=== PATIENT | male | born 1995 | race African-American/Black ===

== ENCOUNTER 2025-04-14 18:40 | Emergency (ER) | payer BC, SELFPAY ==
[2025-04-14 18:41] VITALS: BP 155/99; PULSE 84; RESP 18; TEMP 37; O2SAT 100; BMI 41.1
--- NOTE | 2025-04-14 18:59 | EKG12_ITS ---
Test Reason : CP Blood Pressure : */* mmHG Vent. Rate : 83 BPM Atrial Rate : 83 BPM P-R Int : 156 ms QRS Dur : 82 ms QT Int : 360 ms P-R-T Axes : 53 25 -5 degrees QTcB Int : 423 ms Normal sinus rhythm Normal ECG Confirmed by Arthur Limon ([id number]), makeup editor RICARDO GIFFORD ([id number]) on 04/15/2025 11:27:07 AM Referred By: ELSA Confirmed By: Arthur Limon
--- NOTE | 2025-04-14 18:59 | EKG12_ITS ---
Test Reason : CP Blood Pressure : */* mmHG Vent. Rate : 83 BPM Atrial Rate : 83 BPM P-R Int : 156 ms QRS Dur : 82 ms QT Int : 360 ms P-R-T Axes : 53 25 -5 degrees QTcB Int : 423 ms Normal sinus rhythm Normal ECG Confirmed by Arthur Limon ([id number]), research editor RICARDO GIFFORD ([id number]) on 04/15/2025 11:27:07 AM Referred By: ELSA Confirmed By: Arthur Limon
--- NOTE | 2025-04-14 19:00 | EDS_ITS ---
HPI History of Present Illness Chief Complaint: Chest Pain Informant: patient Onset/Context/Timing Onset: Weeks Activity at onset: gradual Timing: Intermittent Quality: Positive for Sharp Location: Right Chest and Left Chest Current Severity: Mild Maximum Severity: Mild Worsened By: Nothing Relieved By: Nothing Associated Symptoms: Negative for Nausea, Vomiting, Diaphoresis, Dyspnea, Cough, Fever, Lightheadedness, Acid Reflux or Palpitations Narrative Narrative: 29-year-old male history of hypertension currently is no primary care physician he previously was treated with lisinopril has been off of that for months if not a year because he has not have anybody can rewrite the prescription for him. States is not uncommon for him to get chest pain but now he is getting back pain associated with it. Denies any fall injury or trauma. No history of DVT or PE. No family history. No recent travel, surgery immobilization. No hemoptysis. No leg pain or swelling. No cardiac history. No recent illness. Prior Similar Symptoms: Yes Recent Illness/Hospitalization: No CVD Risk Factors: Positive for Hypertension; Negative for Diabetes or Hypercholesterolemia PE Risk Factors: Negative for Recent Travel/Surgery, Recent Immobilization, Prior DVT or PE, Cancer or OCP + Smoking + >/=35 TAD Risk Factors: Negative for Marfan's Syndrome [facility] Medical History Vertigo Hypertension Home Medications ?Medication ?Instructions ?Recorded ?Last Taken ?Type lisinopril 10 mg tablet 10 mg PO DAILY 30 days #30 t abs 04/14/25 Unknown Rx Allergy/AdvReac Type Severity Reaction Status Date / Time No Known Allergies Allergy Verified 04/14/25 18:41 Social History Smoking Status: Never smoker ROS ROS ED Constitutional Constitutional ED: Denies chills or fever(s) Eyes Eyes: Reports none ENT ENT ED: Denies ear pain Cardiovascular Cardiovascular: Reports as per HPI and chest pain; Denies orthopnea, palpitations, paroxysmal nocturnal dyspnea or racing heartbeat Respiratory/Chest Respiratory/Chest: Denies cough, dyspnea, dyspnea on exertion, orthopnea, paroxysmal nocturnal dyspnea or sputum Gastrointestinal Gastrointestinal: Denies abdominal pain or constipation Genitourinary Genitourinary ED: Denies dysuria or hematuria Musculoskeletal Musculoskeletal: Reports back pain; Denies arthralgias Integumentary Denies abscess Neurologic Neurologic: Denies headache(s) Psychiatric Psychiatric: Denies anxiety Endocrine Endocrinology: Denies cold intolerance Hematologic/Lymphatic Hematologic/Lymphatic: Denies easy bleeding, easy bruising or lymphadenopathy Allergic/Immunologic Allergic/Immunologic ED: Denies mouth swelling, tongue swelling or urticaria EXAM Physical Exam Narrative Exam Narrative: Appropriate 9-year-old male. Vital signs are stable he is afebrile. Pulse ox 100% on room air no signs hypoxia. No distress. H EENT exam pupils round react light. Moist mucous membranes. Neck nontender no JVD. No lymphadenopathy. Lungs clear to auscultation bilaterally. Heart regular rhythm no murmur. Chest wall and ribs are nontender. Abdomen is soft nontender normal bowel sounds without peritoneal signs. Back nontender. Moving all 4 extremities. Normal education manager strength. Normal dorsi plantarflexion. Calves are nontender without edema or cords. Equal symmetric radial pulses. Neurologically is awake alert. Answer questions following commands. Benign exam. Const Vital Signs: 04/14/25 18:41 04/14/25 18:48 04/14/25 19:02 Temperature 98.6 F Temperature Source Oral Pulse Rate 84 Respiratory Rate 18 Respiratory Effort Normal Non-Labored Blood Pressure 155/99 H Blood Pressure Mean 117 Pulse Ox 100 Oxygen Delivery Method Room Air Room Air 04/14/25 19:30 04/14/25 20:00 Temperature Temperature Source Pulse Rate 86 81 Respiratory Rate 18 18 Respiratory Effort Blood Pressure 152/83 H 146/94 H Blood Pressure Mean 106 111 Pulse Ox 100 99 Oxygen Delivery Method Room Air Room Air Positive well nourished and well developed; Negative for cachectic, contractures or unkempt General Appearance ED: well developed and NAD; Negative for unkempt, cachectic or contractures Nutritional Appearance: Negative for cachectic HEENT Reports moist mucous membranes normocephalic and atraumatic Eyes PERRL and EOMs intact bilaterally General Eye ED: Negative for pale conjunctiva or scleral icterus Neck no lymphadenopathy, supple and no JVD Chest Wall inspection of chest normal and palpation of chest normal Resp normal respiratory effort and clear to auscultation bilaterally Cardio regular rate, regular rhythm, S1 normal heart sound, S2 normal heart sound and no murmurs Peripheral Pulses: pulses 2+ throughout GI normal to inspection, nondistended, normoactive bowel sounds, soft to palpation, non-tender, non-distended and no masses Back/Spine no CVA tenderness and no thoracic nor lumbar tenderness Extremity normal to inspection General Extremety ED: Negative for edema, pulses abnormal or tenderness General Extremity: Negative for edema or pulses abnormal Neuro oriented x3 and CN's II-XII intact bilaterally Sensorium / Orientation: awake, alert, oriented to person, oriented to place and oriented to time; Negative for confused or lethargic Motor Exam: strength 5/5 throughout Psych mental status grossly normal Appearance: Negative for unkempt Skin no rashes or lesions noted and no wounds Heart Score History: Slightly/Non-Suspicious ECG: Normal Age: </= 45 years Risk Factors: 1 or 2 Risk Factors Troponin: </= Normal Limit Score: 1 MDM MDM MDM Narrative Medical decision making narrative: 29-year-old male atypical nonreproducible chest pain. No family history or personal history of DVT or PE or risk factors. Undergo cardiac workup. Exam is benign. Repeat exam at 8:12 pm patient doing well. I went over his normal test results. He is comfortable being discharged home. Chest pain uncertain etiology. Motrin and Tylenol for pain. Outpatient follow-up. I will write him a new prescription for his lisinopril since he has been out of it. And give him a primary care physician to follow-up with. History & Record Review Discussion w/independent historian: Patient Additional record(s) reviewed:: No prior records Lab Data Attestation: I reviewed the patient's lab results. Lab results narrative: CBC white count of 5. H&H 15 and 45. Platelets 110. Electrolytes show sodium 139. Gap 11. Normal BUN and creatinine. Glucose 107. Initial troponin less than 6. Given the patient is 29 and has had pain for weeks I do not think he needs a second. His D-dimer is normal at 0.27. Chest x-ray is normal. Labs: Laboratory Results - last 24 hr 04/14/25 18:47 WBC 5.2 RBC 5.19 Hgb 15.4 Hct 45.2 MCV 87.1 MCH 29.7 MCHC 34.1 RDW Std Deviation 38.8 RDW Coeff of Tariq 12.1 Plt Count 110 L MPV 11.7 Immature Gran % (Auto) 0.400 Neut % (Auto) 49.4 Lymph % (Auto) 38.3 [place] % (Auto) 9.4 Eos % (Auto) 1.9 Baso % (Auto) 0.6 Absolute Neuts (auto) 2.6 Absolute Lymphs (auto) 1.99 Nucleated RBC % 0 D-Dimer Quant (PE/DVT) 0.27 Sodium 139 Potassium 4.1 Chloride 102 Carbon Dioxide 25.3 Anion Gap 11 BUN 10 Creatinine 1.17 Estim Creat Clear Calc 122.46 Est GFR (MDRD) Non-Af 87 BUN/Creatinine Ratio 8.7 L Glucose 107 H Calcium 9.3 Troponin T High Sens < 6 Radiography Chest X-Ray - ED: 2 View, Read by ED Physician, Read by Radiologist, Normal, Heart, Lungs, Mediastinum, Bony Structures, No Acute Disease and Chronic Changes Diagnostic Testing: Clinical Impression(s) from Imaging Studies Chest X-Ray 04/14/25 19:05 IMPRESSION: No focal consolidation. Reading Location: [facility] Chest x-ray, 2 views, AP and lateral, interpreted by myself and radiologist shows normal cardiac silhouette. Normal mediastinum. Normal lung chiang. No effusions. No pneumonia. Rhythm Strip Rhythm Strip: Sinus Rhythm Rate: 83 Ectopy: None EKG Initial EKG: Attestation: I personally reviewed and interpreted this EKG as follows: Interpretation: Sinus Rhythm and No Acute Injury Pattern Comments: Normal sinus rhythm rate 83 no acute signs of VT or ischemia. Prior EKG tracings: not available for review Prior: No Prior Discharge Plan Triage Chief Complaint: Chest Pain ED Provider: Bruno Lewis Dx/Rx/DC Orders Clinical Impression: Chest pain, History of hypertension Instructions: ED Chest Pain, Uncertain Cause Prescriptions: New lisinopril 10 mg tablet 10 mg PO DAILY 30 Days Qty: 30 1RF Primary Care Provider: Care Physician,No Primary Referrals: Care Physician,No Primary [Primary Care Provider] - Marcel Valderrama, SUPERVISOR [employer]CTS-[employer] [facility] - As soon as possible Activity Restrictions/Additional Instructions: Take your blood pressure medication lisinopril as prescribed. Follow-up with a local primary care physician either one of your choice or the clinic. Return if feeling worse. All your test tonight including your EKG and chest x- ray and all of your lab work were normal. Print Language: Swedish Disposition Disposition: Home, Self Care
--- NOTE | 2025-04-14 19:05 | RAD_ITS ---
PROCEDURE: CHEST PA AND LATERAL 04/14/2025 REASON FOR EXAM: CHEST PAIN TECHNIQUE: CHEST PA AND LATERAL COMPARISON: None FINDINGS: No focal consolidation. No pleural effusion or pneumothorax. Cardiac silhouette is within normal limits. No acute fractures. RAD/Chest PA and Lateral IMPRESSION: No focal consolidation. Reading Location: [id number]
--- NOTE | 2025-04-14 19:05 | RAD_ITS ---
PROCEDURE: CHEST PA AND LATERAL 04/14/2025 REASON FOR EXAM: CHEST PAIN TECHNIQUE: CHEST PA AND LATERAL COMPARISON: None FINDINGS: No focal consolidation. No pleural effusion or pneumothorax. Cardiac silhouette is within normal limits. No acute fractures. RAD/Chest PA and Lateral IMPRESSION: No focal consolidation. Reading Location: [id number]
[2025-04-14 19:12] LABS: Hematocrit 45.2 % (40-54); Hemoglobin 15.4 g/dL (13.0-16.5); Immature Granulocytes Count 0.020 X10^3/uL (0.0-0.0); Mean Corp Hgb Conc 34.1 g/dL (32-36); Mean Corpuscular Volume 87.1 fL (80-94); Mean Platelet Vol. 11.7 fl (6.2-12.0); NRBC Flagged by Analyzer 0 % (0-5); Platelet Count 110 K/mm3 (150-450); RBC Distribution Width CV 12.1 % (11.6-14.6); RBC Distribution Width SD 38.8 fl (35.1-43.9); Red Blood Count 5.19 M/mm3 (4.6-6.2); White Blood Count 5.2 K/mm3 (4.4-11.0)
[2025-04-14 19:20] LABS: D-Dimer Quantitative (DVT/PE) 0.27 FEU/ug/m (0.27-0.49)
[2025-04-14 19:30] VITALS: BP 152/83; PULSE 86; RESP 18; O2SAT 100
[2025-04-14 19:44] LABS: Troponin T High Sensitivity < 6 ng/L (<=22)
[2025-04-14 19:48] LABS: Anion Gap 11 (5-15); BUN 10 mg/dL (4-19); BUN/Creat Ratio 8.7 RATIO (10-20); Calcium,Total 9.3 mg/dL (7.6-11.0); Carbon Dioxide 25.3 mmol/L (21.0-32.0); Chloride 102 mmol/L (98-108); Estimated Creatinine Clearance 122.46 ml/min (50-250); Glucose 107 mg/dL (70-99); Potassium 4.1 mmol/L (3.3-5.1)
[2025-04-14 20:00] VITALS: BP 146/94; PULSE 81; RESP 18; O2SAT 99
--- NOTE | 2025-04-14 20:10 | CM.ED ---
Social work Reason for referral: no PCP Referral source: case find SW identified patient's lack of PCP and need for resources. SW entered patient's room, introducing self and role at [facility]. Patient welcomed SW visit and confirmed lack of PCP. Patient accepted resources of [facility] Provider Directory and Imani Devries information. Patient asked for counseling and psychiatry resources as well to help manage patient's anxiety as patient reported feeling more anxious lately. Most recent resources for local counseling and psychiatry provided. No further needs identified. Avani Sanchez, PLASTIC JIG AND FIXTURE BUILDER, BRINEYARD SUPERVISOR
--- NOTE | 2025-04-14 20:10 | CM.ED ---
Social work Reason for referral: no PCP Referral source: case find SW identified patient's lack of PCP and need for resources. SW entered patient's room, introducing self and role at [facility]. Patient welcomed SW visit and confirmed lack of PCP. Patient accepted resources of [facility] Provider Directory and Imani Devries information. Patient asked for counseling and psychiatry resources as well to help manage patient's anxiety as patient reported feeling more anxious lately. Most recent resources for local counseling and psychiatry provided. No further needs identified. Avani Sanchez, HUMAN RESOURCES PROJECT COORDINATOR, SEO ANALYST
[2025-04-14 20:18] VITALS: BP 164/88; PULSE 83; RESP 18; TEMP 37; O2SAT 100
== END 2025-04-14 20:25 | disposition home or self-care (01) ==
PROVIDERS: Emergency Provider Emergency Medicine; Visit Provider Emergency Medicine
DX: R07.89 Other chest pain (principal); I10 Essential (primary) hypertension; Z79.899 Other long term (current) drug therapy
CPT/HCPCS: 71046; 80048; 84484; 85025; 85379; 93005; 99285; A4216

== ENCOUNTER 2025-04-30 15:25 | Emergency (ER) | payer BC, SELFPAY ==
[2025-04-30 15:27] VITALS: BP 170/110; PULSE 82; RESP 18; TEMP 36.9; O2SAT 98
--- NOTE | 2025-04-30 15:57 | EX.ED.DYSGE1 ---
HPI History of Present Illness Chief Complaint: Dizziness Informant: patient and EMS Narrative Narrative: Brought in by EMS from home with recurrent vertigo symptoms. Awakened at 1 PM felt dizzy sitting he states symptoms worse with looking up or looking down with room spinning transient nausea. History of similar 2 years ago diagnosed in [place] worked up in the ER. He had medicines at the time that did help. Denies recent illness he states he deals with cerumen impaction he did remove cerumen yesterday however denied any trauma with this. No ear ringing. No cough. No allergies. States slight headache. Prior similar symptoms: Yes [facility] Medical History Vertigo Hypertension Home Medications ?Medication ?Instructions ?Recorded ?Last Taken ?Type lisinopril 10 mg tablet 10 mg PO DAILY 30 days #30 tabs 04/14/25 Unknown Rx meclizine 25 mg tablet 25 mg PO 4X/DAY PRN PRN Dizziness 04/30/25 Unknown Rx #20 tabs Allergy/AdvReac Type Severity Reaction Status Date / Time No Known Allergies Allergy Verified 04/30/25 15:30 Social History Smoking Status: Never smoker ROS ROS ED Constitutional Constitutional ED: Denies fever(s) Cardiovascular Cardiovascular: Denies chest pain Respiratory/Chest Respiratory/Chest: Denies cough Gastrointestinal Gastrointestinal: Denies diarrhea or vomiting Musculoskeletal Musculoskeletal: Denies none Integumentary Denies rash or wounds Neurologic Neurologic: Reports headache(s) and other Details: Dizziness ; Denies weakness EXAM Physical Exam Const Vital Signs: 04/30/25 15:27 04/30/25 17:27 Temperature 98.4 F Temperature Source Oral Pulse Rate 82 76 Respiratory Rate 18 16 Blood Pressure 170/110 H 151/110 H Blood Pressure Mean 130 123 Pulse Ox 98 100 Oxygen Delivery Method Room Air Room Air Positive well nourished and well developed General Appearance ED: well developed and NAD HEENT Reports TM's clear and moist mucous membranes normocephalic and atraumatic Tympanic Membrane ED: Yes TM's clear Eyes Eyes Narrative: No nystagmus. General Eye ED: Yes normal appearance of both eyes Neck full ROM Chest Wall Chest: Negative for tenderness Resp normal respiratory effort and normal air movement Effort and Inspection: symmetric chest movement; Negative for respiratory distress Cardio regular rate, regular rhythm and no murmurs Peripheral Pulses: pulses 2+ throughout GI normal to inspection, nondistended, normoactive bowel sounds and non-tender Palpation: Negative for guarding or rebound tenderness present Extremity normal to inspection General Extremety ED: Negative for edema or tenderness General Extremity: Negative for edema Neuro oriented x3, CN's II-XII intact bilaterally and no sensory deficits noted Neuro Narrative: [place]-Hallpike was negative bilaterally. Sensorium / Orientation: awake and alert Skin no rashes or lesions noted and no wounds MDM MDM MDM Narrative Medical decision making narrative: Interventions / MDM: Differential diagnosis: Vertigo Diagnosis considered but do not suspect: Intracranial hemorrhage, vascular insufficiency however CT negative. My EKG interpretation: N/A Imaging independently reviewed and interpreted by myself: CT angiogram head and neck per radiology no acute process. External documents reviewed: N/A Test considered but not ordered:N/A ED course: Presents with vertigo symptoms worse with looking up and down. Reports headache. Negative [place]-Hallpike no nystagmus. IV was established. He will be given IV Reglan. Patient recurrent symptoms states has not had a CT angiogram previously from his first episode. Will check CT angiogram head and neck. 1755: CT results negative clinically was feeling better. Ambulated with no difficulties. Similar symptoms in the past. Will write prescription for meclizine use as needed. Outpatient follow-up given. All questions were answered. Re-evaluation: stable Disposition discussed with patient/family/significant other: Patient Case discussed with consulting clinician: N/A This note was generated with [employer] dictation software. It may contain incorrect words, spelling, and punctuation that were not noted in checking the note before signing. Lab Data Attestation: I reviewed the patient's lab results. Labs: Laboratory Results - last 24 hr 04/30/25 15:52 WBC 4.3 L RBC 5.40 Hgb 16.1 Hct 46.8 MCV 86.7 MCH 29.8 MCHC 34.4 RDW Std Deviation 37.7 RDW Coeff of Tariq 11.9 Plt Count 135 L MPV 10.9 Immature Gran % (Auto) 0.200 Neut % (Auto) 65.4 Lymph % (Auto) 25.4 [place] % (Auto) 7.8 Eos % (Auto) 0.7 Baso % (Auto) 0.5 Absolute Neuts (auto) 2.8 Absolute Lymphs (auto) 1.08 Nucleated RBC % 0 PT 13.5 INR 1.0 APTT 24.6 Sodium 136 Potassium 4.2 Chloride 99 Carbon Dioxide 26.3 Anion Gap 10 BUN 9 Creatinine 0.98 Est GFR (MDRD) Non-Af 107 BUN/Creatinine Ratio 9.3 L Glucose 112 H Calcium 8.9 Radiography Diagnostic Testing: Clinical Impression(s) from Imaging Studies Head/Neck CTA 04/30/25 16:38 IMPRESSION: Normal CTA of the head and neck. No acute intracranial abnormality. Reading Location: [id number] Discharge Plan Triage Chief Complaint: Dizziness ED Provider: Jose Francisco Díaz Dx/Rx/DC Orders Clinical Impression: Vertigo, Dizziness Instructions: ED Vertigo, Unspecified Prescriptions: New meclizine 25 mg tablet 25 mg PO 4X/DAY PRN PRN (Reason: Dizziness) Qty: 20 0RF No Action lisinopril 10 mg tablet 10 mg PO DAILY 30 Days Qty: 30 1RF Stand Alone Forms: ED Work / School Excuse Primary Care Provider: Care Physician,No Primary Referrals: Philipp Ambrocio MD [Med Staff - Active Staff] - 1-2 Weeks Care Physician,No Primary [Primary Care Provider] - Activity Restrictions/Additional Instructions: CT angiogram head and neck normal. Labs normal. Clinical improvement with medications. Taking use medication as prescribed as needed. Follow-up to be established with primary care doctor. Print Language: [place] Disposition Disposition: Home, Self Care
[2025-04-30] MEDS: 0.9% Normal Saline (500mL Bag) 500 ML 1000 ML IV (16:03)
--- NOTE | 2025-04-30 16:38 | CT_ITS ---
PROCEDURE: CTA HEAD AND NECK W/ CONTRAST 04/30/2025 REASON FOR EXAM: VERTIGO TECHNIQUE: CTA HEAD AND NECK W/ CONTRAST Multiplanar Sagittal and Coronal images were obtained. 3D and MIP post processing was performed. CONTRAST: Isovue 370 VOLUME: 100 mL One or more dose reduction techniques were used (e.g., Automated exposure control, adjustment of the mA and/or kV according to patient size, use of iterative reconstruction technique). RADIATION DOSE SUMMARY: DLP: 1582.81 mGycm COMPARISON: None available. FINDINGS: CTA HEAD: Patent intracranial arterial vasculature. No large vessel occlusion, significant stenosis, saccular aneurysm, or vascular malformation identified. No stenosis of the basilar artery. Left ZION A1 segment is relatively hypoplastic compared to the right side. Patent anterior and bilateral posterior communicating arteries. The major dural venous sinuses appear patent. CTA NECK: Conventional aortic arch branching. Bilateral cervical carotid and codominant vertebral arteries are patent, normal in course and caliber. No aneurysm or dissection. NONCONTRAST CT HEAD: No acute intracranial hemorrhage, extra-axial collection, mass effect or evidence of acute infarct. Ventricles and subarachnoid spaces are normal in size. Small roughly 7 mm focal dural calcification versus heavily calcified meningioma at the anterior left falx. Orbital contents are unremarkable. Intact skull base and calvarium. Polypoid mucosal thickening in the bilateral maxillary sinuses, greater on the right. Well-aerated bilateral mastoid air cells and middle ear cavities. CT/CTA Head AND Neck W/ Contrast IMPRESSION: Normal CTA of the head and neck. No acute intracranial abnormality. Reading Location: [id number]
[2025-04-30 16:41] LABS: Anion Gap 10 (5-15); BUN 9 mg/dL (4-19); BUN/Creat Ratio 9.3 RATIO (10-20); Calcium,Total 8.9 mg/dL (7.6-11.0); Carbon Dioxide 26.3 mmol/L (21.0-32.0); Chloride 99 mmol/L (98-108); Glucose 112 mg/dL (70-99); Potassium 4.2 mmol/L (3.3-5.1)
[2025-04-30 17:09] LABS: Partial Thromboplast Time 24.6 Seconds (24.1-36.2); Prothrombin Time (Protime)PT. 13.5 SECONDS (11.7-14.9)
[2025-04-30 17:27] VITALS: BP 151/110; PULSE 76; RESP 16; O2SAT 100
[2025-04-30 17:44] LABS: Hematocrit 46.8 % (40-54); Hemoglobin 16.1 g/dL (13.0-16.5); Immature Granulocytes Count 0.010 X10^3/uL (0.0-0.0); Mean Corp Hgb Conc 34.4 g/dL (32-36); Mean Corpuscular Volume 86.7 fL (80-94); Mean Platelet Vol. 10.9 fl (6.2-12.0); NRBC Flagged by Analyzer 0 % (0-5); Platelet Count 135 K/mm3 (150-450); RBC Distribution Width CV 11.9 % (11.6-14.6); RBC Distribution Width SD 37.7 fl (35.1-43.9); Red Blood Count 5.40 M/mm3 (4.6-6.2); White Blood Count 4.3 K/mm3 (4.4-11.0)
[2025-04-30 18:04] VITALS: BP 147/107; PULSE 92; RESP 17; TEMP 36.6; O2SAT 98
== END 2025-04-30 18:04 | disposition home or self-care (01) ==
PROVIDERS: Emergency Provider Emergency Medicine; Visit Provider Emergency Medicine
DX: R42 Dizziness and giddiness (principal); I10 Essential (primary) hypertension; Z79.899 Other long term (current) drug therapy
CPT/HCPCS: 70496; 70498; 80048; 85025; 85610; 85730; 96374; 99285; Q9967; A4216

== ENCOUNTER 2025-09-17 15:41 | Emergency (ER) | payer BC, SELFPAY ==
[2025-09-17 15:53] VITALS: BP 177/103; PULSE 93; PULSE 95; RESP 16; TEMP 36.6; O2SAT 100; O2SAT 99; BMI 41.6
--- NOTE | 2025-09-17 16:08 | CT_ITS ---
PROCEDURE: CT SOFT TISSUE NECK WITH CONTRAST 09/17/2025 REASON FOR EXAM: R PERITONSILLAR ABSCESS TECHNIQUE: Procedure Code: CTNEW Modality: CT Procedure: SOFT TISSUE NECK WITH CONTRAST CONTRAST: Isovue-300 VOLUME: 75 mL One or more dose reduction techniques were used (e.g., Automated exposure control, adjustment of the mA and/or kV according to patient size, use of iterative reconstruction technique). RADIATION DOSE SUMMARY: CTDlvol: 20.39 mGy DLP: 651.94 mGycm COMPARISON: CTA neck 04/30/2025 FINDINGS: Mild prominence of the palatine tonsils and adenoids which may reflect tonsillitis. Otherwise no acute or active inflammatory pathology in the soft tissues of the neck appreciated. No drainable fluid collection/abscess. No prevertebral/retropharyngeal edema. Normal epiglottis. The visualized airway is widely patent and midline. Imaged major vascular structures are normal in course and caliber. No suspicious lymph node enlargement. Bilateral nonspecific shotty subcentimeter cervical lymph nodes may be reactive. Clear imaged lung apices. Visualized osseous structures are intact and within normal limits. No osseous erosion or destruction. No mastoid effusions or fluid in the paranasal sinuses. Mild polypoid mucosal thickening in the floors of the bilateral maxillary sinuses. CT/Soft Tissue Neck WITH Contrast IMPRESSION: Mildly prominent palatine tonsils and adenoids may reflect tonsillitis. No drainable fluid collection/abscess or other active inflammatory changes. Reading Location: [id number]
--- NOTE | 2025-09-17 16:09 | EX.ED.DYSGE1 ---
HPI History of Present Illness Chief Complaint: Cough Informant: patient Narrative Narrative: 29-year-old male presenting to the emergency room with sore throat cough. Patient states on Sunday he developed a cough and by Sunday he felt substantially worse noting myalgias nasal congestion worsening cough and sore throat. He states that he was coughing up what appeared to be some blood. He states that he believes he had a fever has been chilling. No vomiting or diarrhea. No rashes. He has a history of hypertension and takes lisinopril. He notes the right side of his throat hurts substantially more than the left. Patient did not take his blood pressure medication this morning. Pharmacy states a 30-day supply has not been filled for several months. [facility] Medical History Vertigo Hypertension Home Medications ?Medication ?Instructions ?Recorded ?Last Taken ?Type lisinopril 10 mg tablet 10 mg PO DAILY 30 days #30 tabs 04/14/25 09/16/25 Rx amoxicillin 875 mg-potassium 1 tab PO BID #20 tabs 09/17/25 Unknown Rx clavulanate 125 mg tablet Allergy/AdvReac Type Severity Reaction Status Date / Time No Known Allergies Allergy Verified 09/17/25 15:53 Surgical History no surgical history no surgical history Social History housing: house Smoking Status: Never smoker [facility] ED Constitutional Constitutional ED: Reports chills, fever(s) and subjective; Denies weight loss Eyes Eyes: Denies change in vision or diplopia ENT ENT ED: Reports rhinorrhea and sore throat; Denies ear pain Cardiovascular Cardiovascular: Denies chest pain, orthopnea, palpitations or racing heartbeat Respiratory/Chest Respiratory/Chest: Reports cough and other Details: Hemoptysis ; Denies dyspnea or orthopnea Gastrointestinal Gastrointestinal: Denies abdominal pain, diarrhea, nausea or vomiting Genitourinary Genitourinary ED: Denies dysuria, hematuria or urinary frequency Musculoskeletal Musculoskeletal: Reports myalgias; Denies arthralgias or neck pain Integumentary Denies abscess or rash Neurologic Neurologic: Denies headache(s) or weakness Psychiatric Psychiatric: Denies anxiety, depression, suicidal ideation or suicidal thoughts Endocrine Endocrinology: Denies polydipsia, polyphagia or polyuria Allergic/Immunologic Allergic/Immunologic ED: Denies mouth swelling, tongue swelling or urticaria EXAM Physical Exam Const Vital Signs: 09/17/25 15:53 09/17/25 15:53 09/17/25 16:31 Temperature 98 F Temperature Source Oral Pulse Rate 95 93 Respiratory Rate 16 16 Respiratory Effort Normal Non-Labored Respiratory Depth Normal Respiratory Pattern Normal Blood Pressure 177/103 H 177/103 H Blood Pressure Mean 127 127 Pulse Ox 99 100 Oxygen Delivery Method Room Air Room Air Positive well nourished and well developed General Appearance ED: well developed and NAD HEENT Reports normocephalic, head/scalp atraumatic and moist mucous membranes HEENT Narrative: Patient handling secretions normally. There is a hoarse voice but it is not muffled. There is right peritonsillar swelling when compared to the left. Mild oral pharyngeal erythema. No palatal petechiae. There is some scattered anterior lymph nodes. Tympanic membranes appear normal bilaterally. Eyes PERRL and EOMs intact bilaterally Neck supple and no JVD Neck Narrative: No meningeal signs Resp normal respiratory effort and clear to auscultation bilaterally Cardio regular rate, regular rhythm and no murmurs GI normal to inspection, nondistended, normoactive bowel sounds and non-tender Palpation: soft Back/Spine no CVA tenderness and normal ROM Extremity normal to inspection General Extremety ED: Negative for edema General Extremity: Negative for edema Neuro oriented x3 and CN's II-XII intact bilaterally Sensorium / Orientation: alert Motor Exam: strength 5/5 throughout Psych mental status grossly normal Mood & Affect: Negative for depressed or tearful Skin no rashes or lesions noted and no wounds MDM MDM MDM Narrative Medical decision making narrative: Differential diagnosis includes but not limited to pneumonia bacterial pharyngitis peritonsillar abscess viral URI bronchitis bronchospasm Patient's white count is 7.5. He has thrombocytopenia at 129 but this appears chronic in nature. [place] was negative liver enzymes normal. CT of the neck does not demonstrate a peritonsillar abscess. My independent interpretation of the chest x-ray is no acute process. Throat culture was obtained. Patient will be started on Augmentin. Would recommend oral hydration. Work note will be given. Return if worsening or concerns. Patient was encouraged to take his lisinopril. History & Record Review Discussion w/independent historian: Patient Lab Data Attestation: I reviewed the patient's lab results. Labs: Laboratory Results - last 24 hr 09/17/25 16:30 WBC 7.5 RBC 5.21 Hgb 15.2 Hct 46.2 MCV 88.7 MCH 29.2 MCHC 32.9 RDW Std Deviation 38.7 RDW Coeff of Tariq 11.9 Plt Count 129 L MPV 10.6 Immature Gran % (Auto) 0.300 Neut % (Auto) 64.3 Lymph % (Auto) 23.8 [place] % (Auto) 9.9 Eos % (Auto) 1.2 Baso % (Auto) 0.5 Absolute Neuts (auto) 4.8 Absolute Lymphs (auto) 1.78 Nucleated RBC % 0 Sodium 137 Potassium 4.8 Chloride 102 Carbon Dioxide 25.8 Anion Gap 9 BUN 14 Creatinine 0.98 Estim Creat Clear Calc 147.21 Est GFR (MDRD) Non-Af 108 BUN/Creatinine Ratio 13.8 Glucose 109 H Calcium 9.2 Total Bilirubin 0.27 AST 34 ALT 45 Alkaline Phosphatase 88 Total Protein 7.1 Albumin 3.8 Globulin 3.3 Albumin/Globulin Ratio 1.2 Monoscreen Negative Radiography Diagnostic Testing: Clinical Impression(s) from Imaging Studies Soft Tissue Neck CT 09/17/25 16:08 IMPRESSION: Mildly prominent palatine tonsils and adenoids may reflect tonsillitis. No drainable fluid collection/abscess or other active inflammatory changes. Reading Location: [facility] Chest X-Ray 09/17/25 16:45 IMPRESSION: No acute pulmonary disease. Reading Location: [facility] Discharge Plan Triage Chief Complaint: Cough ED Provider: Herminio Newell Dx/Rx/DC Orders Clinical Impression: Pharyngitis Instructions: ED Pharyngitis, Report Pending Prescriptions: New amoxicillin-pot clavulanate 875-125 mg tablet 1 tab PO BID Qty: 20 0RF No Action lisinopril 10 mg tablet 10 mg PO DAILY 30 Days Qty: 30 1RF Primary Care Provider: Care Physician,No Primary Referrals: Care Physician,No Primary [Primary Care Provider, Medical] Print Language: Peruvian Disposition Disposition: Home, Self Care
[2025-09-17 16:44] LABS: Hematocrit 46.2 % (40-54); Hemoglobin 15.2 g/dL (13.0-16.5); Immature Granulocytes Count 0.020 X10^3/uL (0.0-0.0); Mean Corp Hgb Conc 32.9 g/dL (32-36); Mean Corpuscular Volume 88.7 fL (80-94); Mean Platelet Vol. 10.6 fl (6.2-12.0); NRBC Flagged by Analyzer 0 % (0-5); Platelet Count 129 K/mm3 (150-450); RBC Distribution Width CV 11.9 % (11.6-14.6); RBC Distribution Width SD 38.7 fl (35.1-43.9); Red Blood Count 5.21 M/mm3 (4.6-6.2); White Blood Count 7.5 K/mm3 (4.4-11.0)
--- NOTE | 2025-09-17 16:45 | RAD_ITS ---
PROCEDURE: CHEST PA AND LATERAL 09/17/2025 REASON FOR EXAM: COUGH TECHNIQUE: Procedure Code: RADCXR Modality: DX Procedure: CHEST PA AND LATERAL COMPARISON: 04/14/2025 FINDINGS: Lungs/Pleura: Clear. Heart/Mediastinum: Normal in size. Bones/Soft tissues: Unremarkable. RAD/Chest PA and Lateral IMPRESSION: No acute pulmonary disease. Reading Location: [id number]
[2025-09-17 17:46] LABS: AST(SGOT) 34 U/L (<=37); Alanine Aminotransfer ALT/SGPT 45 U/L (<=46); Albumin, Serum 3.8 g/dL (3.5-5.0); Alkaline Phosphatase 88 U/L (40-129); Anion Gap 9 (5-15); BUN 14 mg/dL (4-19); BUN/Creat Ratio 13.8 RATIO (10-20); Calcium,Total 9.2 mg/dL (7.6-11.0); Carbon Dioxide 25.8 mmol/L (21.0-32.0); Chloride 102 mmol/L (98-108); Estimated Creatinine Clearance 147.21 ml/min (50-250); Globulin 3.3 g/dL (2.2-4.2); Glucose 109 mg/dL (70-99); Internal QC Validated? YES +Cl - CLEAR BKGD; Potassium 4.8 mmol/L (3.3-5.1)
[2025-09-17 17:47] LABS: Record Kit Lot#, Mono 16251077
[2025-09-17 18:09] VITALS: BP 166/90; PULSE 89; RESP 18; TEMP 36.9; O2SAT 99
== END 2025-09-17 18:10 | disposition home or self-care (01) ==
PROVIDERS: Emergency Provider Emergency Medicine; Visit Provider Emergency Medicine
DX: J02.9 Acute pharyngitis, unspecified (principal); I10 Essential (primary) hypertension; Z79.899 Other long term (current) drug therapy
CPT/HCPCS: 70491; 71046; 80053; 85025; 86308; 87070; 87651; 99285; Q9967; A4216